=== PATIENT | male | born 1990 | race Caucasian/White ===

== ENCOUNTER 2016-04-17 10:58 | Emergency (ER) | payer MEDICAID ==
--- NOTE | ~2016-04-17 | ER ---
PATIENT'S NAME: DENTON TONG [facility] AGE: 25 Y [address] ROOM: [place] [address] LOCATION: [facility] ADMIT DATE: 04/17/2016 ER/Outpatient Report DISCHARGE DATE: 04/17/2016 FAMILY PHYSICIAN: Ramón Sandy MD ATTENDING PHYSICIAN: Miquel Fields CHIEF COMPLAINT: Fever and diarrhea and abdominal discomfort. HISTORY OF PRESENT ILLNESS: The patient states that for the last few days he has not been feeling very well. It has been progressive over the last several weeks, but it has been particularly rough the last few days. He states that his usual home medications are not controlling his symptoms adequately. The pain is most prominent in the upper mid abdomen. He has a history of cholecystectomy. He did see the provider recently on and did not have any report of any significantly abnormal labs. His highest temperature was 99.1 last night. He has had multiple episodes of loose stools recently. No other concerning presentation. He does have some sort of an immunologic deficiency. PAST MEDICAL HISTORY: As best we could figure are documented on the record and reviewed by me. SOCIAL HISTORY: As best we could figure are documented on the record and reviewed by me. MEDICATIONS: As best we could figure are documented on the record and reviewed by me. ALLERGIES: BEST WE COULD FIGURE ARE DOCUMENTED ON THE RECORD AND REVIEWED BY ME. REVIEW OF SYSTEMS: All systems reviewed and negative except as noted in the HPI. PHYSICAL EXAMINATION: VITAL SIGNS: Blood pressure is 131/74, pulse is 89, respiratory rate is 20, temperature 98.6, and SpO2 is 98% on room air. Pain is rated at 7/10, acceptable is 5/10. GENERAL: Age-appropriate male, in no obvious pain or distress, resting comfortably on exam table. HEENT: Normocephalic, atraumatic. Eyes are PERRL. Oropharynx is clear. NECK: Supple. Trachea is midline. CHEST/HEART: Regular rate and rhythm. No murmurs. LUNGS: Clear to auscultation bilaterally. No rhonchi, wheezes, or rales. PATIENT'S NAME: DENTON TONG [facility] AGE: 25 Y [address] ROOM: [place] [address] LOCATION: [facility] ADMIT DATE: 04/17/2016 ER/Outpatient Report DISCHARGE DATE: 04/17/2016 FAMILY PHYSICIAN: Ramón Sandy MD ATTENDING PHYSICIAN: Miquel Fielsd ABDOMEN: Tender in the epigastrium with significant flinching on initial exam. No rebound appreciated. Slightly worse exam on re-evaluation. Bowel sounds are present. No resonance to percussion. BACK: Nontender. EXTREMITIES: Warm and well perfused with no deformities, erythema, or edema. SKIN: Warm, dry, and intact. LABORATORY DATA AND X-RAYS: A CT scan of the abdomen was obtained with no abnormalities per Radiology. 3- way chest did not reveal any abnormalities per my read. Labs: Procalcitonin is below threshold. Sodium 139, potassium 4.5, chloride 105, CO2 is 23, BUN is 13, creatinine 1.1, and GFR is greater than 60. LFTs are unremarkable. Amylase and lipase 43 and 111 respectively. GGT is 171. CRP 0.3. Free T4 is 1.0, TSH is 1.14. WBC is 9.6, hemoglobin 14.1, and platelets of 320. INR is 1.0. Serum lactate is 2.4. IMPRESSION: 1. Abdominal pain. 2. Lactic acidemia with no evidence of hypoperfusion. 3. Elevation of GGT without evidence of hepatitis, status post cholecystectomy. EMERGENCY DEPARTMENT COURSE: The patient was seen and evaluated as above. No surgical abdomen at this time based on time course and presentation. The patient remained hemodynamically stable. His symptoms were attempted to be controlled with fluids in addition to morphine and Zofran. This did not help much. He was ultimately given some Dilaudid with Benadryl to prevent reaction and he did well with that and that in fact got him to an acceptable pain level. Based on his current presentation and time course, I do not think he has surgical cause at this time and he is not septic. I will recommend he follow up with his primary care providers in the next few days as needed. Return immediately to the ER if worsening. I gave him a short prescription for Dilaudid to take with Benadryl as needed if worse. All questions were answered. The patient was ultimately discharged in stable condition after acceptable pain control was achieved. MD GREER CARVER/levl PATIENT'S NAME: DENTON TONG [facility] AGE: 25 Y [address] ROOM: [place] [address] LOCATION: [facility] ADMIT DATE: 04/17/2016 ER/Outpatient Report DISCHARGE DATE: 04/17/2016 FAMILY PHYSICIAN: Ramón Sandy MD ATTENDING PHYSICIAN: Miquel Fields /[id number] d: 04/18/16 0006 t: 04/18/16 1055, OUTPATIENT REPORT
[~2016-04-17 10:58] MED LIST: ACETAMINOPHEN PO; ACIDOPHILUS1 EAC2 PO; ADVIL200 MG PO; ALEVE220 MG PO; ASPIRIN PO; ATARAX50 MG PO; ATIVAN 0.5MG0.5 MG PO; AUGMENTIN875 MG PO; BENTYL20 MG PO; BIOTIN PLUS-CA1 EACH PO; CALAN SR240 MG PO; CATAPRES0.2 MG PO; CENTRUM MULTIG80 MCG PO; DIPHENHYDRAMINE PO; DOXYCYCLINE100 MG PO; EFFEXOR XR150 MG PO; EFFEXOR XR75 MG PO; EXCEDRIN EXTRA1 EACH PO; EXCEDRIN PM PO; FLAGYL500 MG PO; FLEXERIL10 MG PO; GAVISCON 80-141 EACH PO; HYDROXYZINE HCL10 MG PO; IMITREX20 MG NOSE; IMITREX50 MG PO; INDOCIN50 MG PO; KLONOPIN0.5 MG PO; LACTINEX (FLORA1 TAB PO; LOMOTIL1 TAB PO; LOPRESSOR50 MG PO; LYRICA 150MG C150 MG PO; MAXALT MLT10 MG SL; MELATONIN5 M2 PO; MINOCIN100 M2 PO; MOBIC15 MG PO; NAPROSYN500 MG PO; NEURONTIN600 MG PO; NUCYNTA ER150 MG PO; OLANZAPINE15 MG PO; OLANZAPINE20 MG PO; PAXIL20 MG PO; PAXIL40 M1 PO; PHENERGAN12.5 MG R; PHENERGAN25 M1 PO; PHENERGAN25 MG PO; PRILOSEC20 MG PO; PROBIOTIC1 EAC1 PO; PROTONIX40 MG PO; RESTORIL15 MG PO; RIZATRIPTAN10 M1 PO; TART CHERRY CA1 EACH PO; TOPAMAX50 MG PO; TUMS REGULAR ST1 TAB PO; TYLENOL325 MG PO; ULTRAM50 MG PO; VANCOCIN HCL125 MG PO; VANCOMYCIN HCL1 GM PO; VIT D3 PO; VITAMIN D1000 UNIT PO; ZANTAC (NON-FO150 MG PO; ZOFRAN8 M1 PO
[2016-04-17 12:43] LABS: BASOPHIL # 0.1 K/uL (0.0-0.2); BASOPHIL % 0.7 %; EOSINOPHIL # 0.1 K/uL (0.0-0.5); EOSINOPHIL % 1.3 %; HEMATOCRIT 41.8 % (37.0-53.0); HEMOGLOBIN 14.1 g/dL (12.0-17.0); IMMATURE GRANULOCYTE # 0.1 K/uL (0.0-0.3); IMMATURE GRANULOCYTE % 0.8 %; LYMPHOCYTE # 0.7 K/uL (0.8-4.0); LYMPHOCYTE % 7.7 %; MCH 28.4 pg (27.0-34.0); MCHC 33.7 gm/dL (32.0-36.5); MCV 84.1 fl (83.0-98.0); MONOCYTE # 0.3 K/uL (0.0-1.0); MONOCYTE % 3.1 %; NEUTROPHIL # (ANC) 8.3 K/uL (1.4-9.0); NEUTROPHIL % 86.4 %; NRBC % 0 /100WBC (0-0.00); PLATELET COUNT 320 K/uL (150-450); RBC 4.97 M/uL (4.00-6.00); RDW-CV 12.6 % (11.9-14.6); WBC 9.6 K/uL (4.0-11.0)
[2016-04-17 12:48] LABS: PTT 23 SECONDS (25-32)
[2016-04-17 13:02] LABS: ALBUMIN 3.8 gm/dL (3.5-5.0); ALK PHOS 99 IU/L (33-138); ALT 54 IU/L (12-78); ANION GAP 15.5 (10.0-19.0); AST 22 IU/L (10-40); BLOOD UREA NITROGEN 13 mg/dL (6-24); CALCIUM 9.6 mg/dL (8.5-10.5); CHLORIDE 105 mMol/L (96-110); CO2 23 mMol/L (22-32); CREATININE 1.1 mg/dL (0.6-1.3); ESTIMATED GFR (MDRD EQUATION) > 60; POTASSIUM 4.5 mMol/L (3.7-5.1); SODIUM 139 mMol/L (135-145); TOTAL PROTEIN 7.6 g/dL (6.0-8.4)
[2016-04-17 13:03] LABS: TOTAL BILIRUBIN 0.3 mg/dL (0.0-1.5)
== END 2016-04-17 16:07 | disposition disaster alternative care site (69) ==
LOC: GMED 10:58
PROVIDERS: Emergency Medicine
DX: E87.2 Acidosis (principal); R10.13 Epigastric pain; R74.8 Abnormal levels of other serum enzymes
CPT/HCPCS: J1170; J1200; J2270; J2405; J7030

== ENCOUNTER 2016-07-14 21:59 | Emergency (ER) | payer MEDICAID ==
--- NOTE | ~2016-07-14 | ER ---
PATIENT'S NAME: DENTON TONG [facility] AGE: 25 Y [address] ROOM: [place] [address] LOCATION: ED ADMIT DATE: 07/14/2016 ER/Outpatient Report DISCHARGE DATE: 07/14/2016 FAMILY PHYSICIAN: Ramón Sandy MD ATTENDING PHYSICIAN: Heath Rosales Time of Arrival: 2207 hours. Time of Evaluation: 2215 hours. CHIEF COMPLAINT: Headache. HISTORY OF PRESENT ILLNESS: The patient states he has a headache that began about 11 o'clock this morning. States it is the worst headache he has ever had. It is a burning type pain in one specific spot on the top of his head. He states it is similar to the pain that he had when he had a brain bleed several years ago. States he has had photophobia all day. He is dizzy. He is vomited x1. ALLERGIES: ON HIS CHART AND REVIEWED BY ME. MEDS: On his chart and reviewed by me. PAST MEDICAL HISTORY: Chronic abdominal pain, anxiety, depression, immunodeficiency syndrome, migraine headaches. PAST SURGICAL HISTORY: Appendectomy and cholecystectomy. SOCIAL HISTORY: Denies use of tobacco, drugs, or alcohol. REVIEW OF SYSTEMS: All negative other than those mentioned in the HPI. PHYSICAL EXAMINATION: VITAL SIGNS: He weighs 80.4 kg, blood pressure is 131/67, pulse of 96, respirations 18, temperature of 97.6, O2 saturations 100% on room air. GENERAL: He is awake, alert, and oriented x4. SKIN: [place], warm, and dry. RESPIRATIONS: Even and nonlabored. Oropharynx is clear. NECK: Supple. No lymphadenopathy. PATIENT'S NAME: DENTON TONG [facility] AGE: 25 Y [address] ROOM: [place] [address] LOCATION: [facility] ADMIT DATE: 07/14/2016 ER/Outpatient Report DISCHARGE DATE: 07/14/2016 FAMILY PHYSICIAN: Ramón Sandy MD ATTENDING PHYSICIAN: Heath Rosales LUNGS: Lung sounds are clear throughout. HEART: Regular rate and rhythm. The patient walked in with a steady even gait. Moves all extremities strongly and equally. LABORATORY DATA AND X-RAYS: CT of the head was completed. No acute abnormalities are seen per the radiologist. The patient was given Toradol 60 mg IM and Phenergan 50 mg IM. IMPRESSION: Headache. PLAN: Home, rest, fluids. Continue his current medications. Follow up with his primary provider in the next 2 to 3 days or return to the ER as needed. SID BINGHAM APRN FOR MD JAY KING/mckinley /[id number] d: 07/15/16 0341 t: 07/19/16 1249, OUTPATIENT REPORT
[2016-07-15] MEDS ORDERED: DILAUDID 2MG(HYD2 MG PO (22:12)
[2016-07-15] MEDS ORDERED: VITAMIN D35000 UNI1 PO (22:13)
[2016-07-15] MEDS ORDERED: PROTONIX20 MG PO (22:14)
[2016-07-15] MEDS ORDERED: LOMOTIL1 TAB PO (22:15)
[2016-07-15] MEDS ORDERED: [UNRECOGNIZED DRUG - OTHER] SUB-Q (22:16)
[2016-07-15] MEDS ORDERED: MOTRIN800 MG PO (22:17)
[2016-07-15] MEDS ORDERED: DELTASONE20 MG PO (22:19)
[2016-07-15] MEDS ORDERED: DELTASONE20 M1 PO (22:20)
[2016-07-15] MEDS ORDERED: MAG-OX-400(241400 MG PO (22:23)
[2016-07-15] MEDS ORDERED: ATARAX10 MG PO (22:23)
[2016-07-15] MEDS ORDERED: MUSHROOM SUPPLEMENT PO (22:24)
[2016-07-15] MEDS ORDERED: RESTORE PO (22:26)
[2016-07-15] MEDS ORDERED: BENADRYL25 MG PO (22:29)
== END 2016-07-14 23:03 | disposition disaster alternative care site (69) ==
LOC: GMED 21:59
DX: R51 Headache (principal); F41.9 Anxiety disorder, unspecified; F32.9 Major depressive disorder, single episode, unspecified; D84.9 Immunodeficiency, unspecified; Z90.49 Acquired absence of other specified parts of digestive tract
CPT/HCPCS: J1885; J2550

== ENCOUNTER 2016-07-15 19:23 | Observation (INO) | payer MEDICAID ==
[~2016-07-15] VITALS: Ht 182.9 cm; Wt 80.2 kg
--- NOTE | ~2016-07-15 | DS ---
PATIENT'S NAME: DENTON TONG [facility] AGE: 25 Y [address] ROOM: [address] [place], [place] [address] [place] [facility] DATE: 07/15/2016 Discharge Summary DISCHARGE DATE: 07/16/2016 FAMILY PHYSICIAN: Ramón Sandy MD ATTENDING PHYSICIAN: Jered Baig V Principal Diagnosis: Migraine Headache secondary diagnosis. CVID narcotics addiction HOSPITAL COURSE: 1. 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 Multiple psychiatric illnesses including depression, anxiety, and chronically elevated liver enzymes presented to the emergency department with left side pulsating headache. This had been his second ER visit in the past [address] scan of the head was done and inpatient admission was requested. He was given Dilaudid and Zofran after which he felt better. An MRI of the head was done, which was unremarkable. He was admitted inpatient and given a dose of sumatriptan, which did improve his headache. His narcotics were held and he was told that he will not be given any further narcotic medications in this hospitalization. 2. The patient does have chronically elevated liver enzymes. On 07/15/2016, his alkaline phosphatase was 188, ALT 162, and AST 93. I dug up the previous history and this had been attributed to Effexor and olanzapine and home doses were reduced in consultation with Psychiatry and the previous admissions. I did reduce his dose of Effexor 225 mg p.o. once daily rather than 375 mg p.o. daily. I would still recommend Gastroenterology followup in 4 weeks with liver enzymes. DIET: Regular diet. ACTIVITIES: As tolerated. MEDICATION CHANGES: Effexor was changed from 375 mg to 225 mg p.o. and his Dilaudid was discontinued on discharge. MD JAYLON BURCIAGA/mckinley /[id number] d: 07/17/16 0307 t: 07/18/16 1525, DISCHARGE SUMMARY
--- NOTE | ~2016-07-15 | HP ---
PATIENT'S NAME: DENTON TONG [facility] AGE: 25 Y [address] ROOM: [address] [place], [place] [address] LOCATION: [facility] ADMIT DATE: 07/15/2016 History & Physical DISCHARGE DATE: FAMILY PHYSICIAN: Ramón Sandy MD ATTENDING PHYSICIAN: KENYETTA SOMMERS V DATE OF SERVICE: CHIEF COMPLAINT: Headache. HISTORY OF PRESENT ILLNESS: The patient is a 25-year-old male with complicated past medical history. He has a past medical history of common variable immunodeficiency with Gammagard dependency. He has a longstanding history of chronic abdominal pain with opioid dependency, currently on 2 mg either 2 or 3 times per day. This is managed by a pain specialist at [facility]. He has a history of depression, anxiety, and other psychiatric problems on very high doses of Effexor and Zyprexa. He also has a history of documented opioid-seeking behavior. He has a history of chronic abdominal pain and chronic C diff. The patient presented to the ER today with complaints of left-sided pulsating headache. This has been going on for about 3 days. He was seen in the ER yesterday and felt better with Dilaudid and Zofran and was sent home. Today, he returns again with the same symptoms. He reports that he does have a past medical history of migraines for which he is supposed to take Imitrex, but Imitrex has not been helping him. He reports that this pain is considerably different from his migraine pain. He endorses blurry vision, nausea, vomiting, fevers, chills, worsening abdominal pain, worsening diarrhea with "pussy stools." In the ER, the patient had quite an unremarkable workup. He felt considerably better with 1 mg of Dilaudid and an admission was requested. At this point, the patient just wants some more Dilaudid. REVIEW OF SYSTEMS: Positive as per all the symptoms listed in the HPI. A complete review of systems has been conducted and is negative aside from those pertinent positives. PAST MEDICAL HISTORY: In addition to the problems listed in the HPI, the patient does have a history of subdural hematoma back in 2011. He also was recently hospitalized here and transferred to [facility] with septic shock of unknown underlying PATIENT'S NAME: DENTON TONG [facility] AGE: 25 Y [address] ROOM: [place] [address] LOCATION: [facility] ADMIT DATE: 07/15/2016 History & Physical DISCHARGE DATE: FAMILY PHYSICIAN: Ramón Sandy MD ATTENDING PHYSICIAN: KENYETTA SOMMERS V pathogen. Fatty liver with elevated LFTs and cholecystectomy. CURRENT MEDICATIONS: 1. Cholecalciferol. 2. Benadryl. 3. Oral Lomotil. 4. Dilaudid 2 mg every 12 hours. 5. Atarax 50 three times a day. 6. Ibuprofen as needed. 7. Lorazepam 0.5 b.i.d. 8. Magnesium oxide. 9. Melatonin. 10. Metoprolol 50 mg p.o. b.i.d. 11. Multivitamins. 12. Olanzapine 20 at bedtime. 13. Zofran 8 mg twice a day. 14. Pantoprazole 20 mg daily. 15. Prednisone before Gammagard. 16. Sumatriptan nasal spray. 17. Restoril 50 mg at bedtime. 18. Gammagard weekly. 19. Venlafaxine total of 375 mg. SOCIAL HISTORY: The patient denies any toxic habits. FAMILY HISTORY: Reviewed and noncontributory due to known underlying etiology for the patient's presentation. PHYSICAL EXAMINATION: VITAL SIGNS: Blood pressure of 154/99, heart rate of 119, saturating 97% on room air, respirations are 16, and temperature is 98.2. GENERAL: Appears as a young male, in no significant distress, certainly not consistent with worse headache of his life. NEUROLOGIC: Nonfocal. HEENT: Shows pupils are equal and reactive to light. LYMPHATIC: Shows no cervical lymphadenopathy. ENDOCRINE: Shows no thyromegaly. There is no nuchal rigidity. Kernig and Brudzinski signs are negative. LUNGS: Clear to auscultation. HEART: Heart rate is tachycardic and regular. GI: Abdomen is soft and nontender with normoactive bowel sounds. The patient does endorse chronic left upper quadrant tenderness. : No costovertebral angle tenderness. PATIENT'S NAME: DENTON TONG [facility] AGE: 25 Y [address] ROOM: [place] [id number] LOCATION: [facility] ADMIT DATE: 07/15/2016 History & Physical DISCHARGE DATE: FAMILY PHYSICIAN: Ramón Sandy MD ATTENDING PHYSICIAN: KENYETTA SOMMERS V VASCULAR: 2+ pedal pulses. MUSCULOSKELETAL: Unremarkable. LABORATORY DATA: Studies performed in the ER are remarkable for alkaline phosphatase of 188, AST 93, ALT 163. An unremarkable CBC with a normal differential. ASSESSMENT AND PLAN: This is a 25-year-old male with poorly controlled headaches of presumed migraines. He will be admitted for observation. We will provide him with symptom control with one more dose of IV Dilaudid. I explained to the patient that I do not feel comfortable providing him with continuous IV dosing of Dilaudid given his already strongly establish dependency. I also explained to him that opioids, especially potent ones like Dilaudid actually have a tendency to exacerbate Clostridium difficile, which is probably present in his case. 1. We will get an MRI of his brain to rule out any additional etiology for his headaches, as the patient does report a different quality and intensity of this pain compared with his normal migraines. 2. Reported diarrhea. We will check him for Clostridium difficile. 3. Opioid dependency, noted as above. 4. Depression and anxiety. We will continue him on his current psychiatric regimen. 5. Additional management will depend on clinical course. Time dedicated to this patient encounter is 35 minutes. KENYETTA SOMMERS MD AVK/modl /[id number] D: [id number] T: [id number] HISTORY & PHYSICAL
--- NOTE | ~2016-07-15 | ER ---
PATIENT'S NAME: DENTON TONG [facility] AGE: 25 Y [address] ROOM: [place] [id number] [place] [facility] [place]MIT DATE: 07/15/2016 ER/Outpatient Report DISCHARGE DATE: FAMILY PHYSICIAN: Ramón Sandy MD ATTENDING PHYSICIAN: KENYETTA SOMMERS V TIME SEEN: 1934. CHIEF COMPLAINT: Severe migraine. HISTORY OF PRESENT ILLNESS: The patient is a 25-year-old male, presents with his dad with severe migraine, started about 18 hours ago. The patient was seen last night in the emergency room, was given pain medication and advised to follow up with Dr. Sandy. The patient was then seen by Dr. Sandy at noon today, was given Phenergan 75 mg IM, and advised if he did not improve to return to the emergency room for admission. The headache is described as similar to previous ones which include photophobia, some blurred vision, nausea, and vomiting. Headache mostly is on the left side. ALLERGIES/MEDICATIONS: See copied list, which is quite extensive as well as his home medications. MEDICAL HISTORY: Chronic abdominal pain, migraines, immune deficiency syndrome, chronic C. diff, depression, anxiety. SURGERIES: Include appendectomy and cholecystectomy. SOCIAL HISTORY: Nonsmoker. Does not use drugs or alcohol. REVIEW OF SYSTEMS: GENERAL: Denies fever or chills. HEAD/EENT: Includes severe headache involving mostly the left side. Denies any nasal discharge or sore throat. RESPIRATORY: No shortness of breath or cough. CARDIOVASCULAR: No chest pain. GASTROINTESTINAL: Includes nausea, vomiting, which is not unusual with his migraines. NEUROLOGIC: No numbness or tingling to his extremities. PHYSICAL EXAMINATION: VITAL SIGNS: He had a blood pressure of 114/71, his temperature is 98.9, his PATIENT'S NAME: DENTON TONG [facility] AGE: 25 Y [address] ROOM: [address] [address] [place] [facility] [place]MIT DATE: 07/15/2016 ER/Outpatient Report DISCHARGE DATE: FAMILY PHYSICIAN: Ramón Sandy MD ATTENDING PHYSICIAN: KENYETTA SOMMERS V respiratory rate 20, his pulse has increased to 129, his O2 saturation is 96%. GENERAL APPEARANCE: He appeared somewhat soft and quiet, but was able to carry on a conversation. He was wearing sunglasses because of the photophobia. HEENT: Pupils were grossly equal, reactive. His oral membranes were moist. LUNGS: Clear. NEURO: Gait appeared somewhat slow. No other focal neurological signs present. ASSESSMENT: 1. Intractable migraine. 2. Chronic immune deficiency syndrome. 3. Chronic anxiety/depression. 4. Chronic opiate use for pain control. 5. Has a history of chronic Clostridium difficile. 6. Status post appendectomy and cholecystectomy. PLAN: CBC was drawn here in the emergency room. His white count was 7000. IV was established. He was given 1 mg of Dilaudid and 4 of Zofran IV. The patient will be admitted by Dr. Sommers, the hospitalist. TRAVIS BOX FOR MD MANUELITO KING/mckinley /[id number] d: 07/16/16 0121 t: 07/21/16 1821, OUTPATIENT REPORT
[2016-07-15 20:14] LABS: BASOPHIL # 0.1 K/uL (0.0-0.2); BASOPHIL % 0.7 %; EOSINOPHIL # 0.1 K/uL (0.0-0.5); EOSINOPHIL % 1.1 %; HEMATOCRIT 44.9 % (37.0-53.0); HEMOGLOBIN 15.1 g/dL (12.0-17.0); IMMATURE GRANULOCYTE % 0.3 %; LYMPHOCYTE % 13.7 %; MCHC 33.6 gm/dL (32.0-36.5); MCV 83.3 fl (83.0-98.0); MONOCYTE # 0.5 K/uL (0.0-1.0); MONOCYTE % 6.6 %; MPV 9.3 fl (9.4-12.4); NEUTROPHIL # (ANC) 5.4 K/uL (1.4-9.0); NEUTROPHIL % 77.6 %; NRBC % 0 /100WBC (0-0.00); PLATELET COUNT 282 K/uL (150-450); RBC 5.39 M/uL (4.00-6.00); RDW-CV 12.9 % (11.9-14.6)
[2016-07-15 20:33] LABS: ALBUMIN 3.7 gm/dL (3.5-5.0); ALK PHOS 188 IU/L (33-138); ALT 162 IU/L (12-78); ANION GAP 10.7 (10.0-19.0); AST 93 IU/L (10-40); BLOOD UREA NITROGEN 7 mg/dL (6-24); CHLORIDE 107 mMol/L (96-110); CO2 26 mMol/L (22-32); CREATININE 1.2 mg/dL (0.6-1.3); ESTIMATED GFR (MDRD EQUATION) > 60; POTASSIUM 3.7 mMol/L (3.7-5.1); SODIUM 140 mMol/L (135-145); TOTAL PROTEIN 7.7 g/dL (6.0-8.4)
[2016-07-15 20:37] LABS: TOTAL BILIRUBIN 0.4 mg/dL (0.0-1.5)
[2016-07-15] MEDS ORDERED: DILAUDID 2MG(HYD2 MG PO (22:12)
[2016-07-15] MEDS ORDERED: VITAMIN D35000 UNI1 PO (22:13)
[2016-07-15] MEDS ORDERED: PROTONIX20 MG PO (22:14)
[2016-07-15] MEDS ORDERED: LOMOTIL1 TAB PO (22:15)
[2016-07-15] MEDS ORDERED: [UNRECOGNIZED DRUG - OTHER] SUB-Q (22:16)
[2016-07-15] MEDS ORDERED: MOTRIN800 MG PO (22:17)
[2016-07-15] MEDS ORDERED: DELTASONE20 MG PO (22:19)
[2016-07-15] MEDS ORDERED: DELTASONE20 M1 PO (22:20)
[2016-07-15] MEDS ORDERED: MAG-OX-400(241400 MG PO (22:23)
[2016-07-15] MEDS ORDERED: ATARAX10 MG PO (22:23)
[2016-07-15] MEDS ORDERED: MUSHROOM SUPPLEMENT PO (22:24)
[2016-07-15] MEDS ORDERED: RESTORE PO (22:26)
[2016-07-15] MEDS ORDERED: BENADRYL25 MG PO (22:29)
--- NOTE | 2016-07-16 05:18 | NUR ---
Admission Note: Pt arrived to floor via wheelchair at 2215. VS on admission are as follows: BP 154/99, HR: 119, 02 sat: 97%, R 16, T 98.2. Pt admitted for c/o migrane to L) parietal, ongoing for more than 48 hours. Was seen in the ER previous night. Was seen by Dr. Sandy in clinic today, was given medication and told if did not improve that he would be admitted. Rating pain 8/10. Pt also has complaints of blurred vision, sweating/chills, nausea/vomitting. Head CT negative. Has signficnat medical history. PMI chronic abdominal pain, occult blood off/on since 2010, migranes, immune deficiency syndrome, chronic cidff, depression, anxiety, hypertension. Several allergies, please see list. States that dilaudid is an allergy- causes itching though can tolerate if takes benadryl or atarax. migranes. He states he uses imitrex at home while usually resolves. Follows a special strict diet in [facility] to carbohydrates. Pt was placed in contact isolation for Cdiff.
--- NOTE | 2016-07-16 05:30 | NUR ---
Significant Event: Alert and oriented X3. Pupils round and reactive to light. Equal strength to bilateral upper and lower extremities. Tachcyardic and hypertensive on admission. BP now 108/71 with HR of 79. C/o of migrane pain to L) side of head and left lower abdominal pain (chronic). Gave 1 time does of Dilaudid 1mg IV. Pt was able to rest after dose. Ambulates with minimal assist. 20G IV to L) posterior forearm, saline locked. Zofran and atarax given after IV dose of dilaudid. No signs of nausea/vomitting or loose stools this shift. History of c-diff. Follow up: Need stool sample. MRI this am.
== END 2016-07-16 16:55 | disposition disaster alternative care site (69) ==
LOC: GMED 19:23 → GMSU 20:26
PROVIDERS: Emergency Medicine; ADMIT Internal Medicine
DX: G43.909 Migraine, unspecified, not intractable, without status migrainosus (principal); K76.0 Fatty (change of) liver, not elsewhere classified; F31.9 Bipolar disorder, unspecified; F41.9 Anxiety disorder, unspecified; R10.9 Unspecified abdominal pain; R79.89 Other specified abnormal findings of blood chemistry; D83.9 Common variable immunodeficiency, unspecified; F11.20 Opioid dependence, uncomplicated; Z79.899 Other long term (current) drug therapy; Z90.49 Acquired absence of other specified parts of digestive tract
CPT/HCPCS: A9270; G0378; J1170; J1200; J2405; J3030

== ENCOUNTER 2016-07-23 18:39 | Emergency (ER) | payer MEDICAID ==
--- NOTE | ~2016-07-23 | ER ---
PATIENT'S NAME: DENTON TONG [facility] AGE: 25 Y [address] ROOM: [place], [place] [address] LOCATION: ED ADMIT DATE: 07/23/2016 ER/Outpatient Report DISCHARGE DATE: 07/23/2016 FAMILY PHYSICIAN: Ramón Sandy MD ATTENDING PHYSICIAN: Heath Rosales Time of Arrival: 1841 hours. Time of Evaluation: 1905 hours. CHIEF COMPLAINT: Headache. HISTORY OF PRESENT ILLNESS: The patient states he has a headache on top of his head and has had for the last 7 days. He has had some photophobia and blurred vision. He has been nauseated and vomited x2. He was started on some new medications by Dr. Christopher for the headaches, sumatriptan and rizatriptan. He reports that he did take those today. The sumatriptan was this morning and the rizatriptan was at noon. He reports the headache continues, and it is not improving. He did take hydromorphone at 4 o'clock this afternoon. He states that he has been to Dr. Sandy's office this week also and has received Toradol several different times. ALLERGIES: DEMEROL AND METHADONE. CURRENT MEDICATIONS: On his chart and reviewed by me. PAST MEDICAL HISTORY: Chronic diarrhea, chronic abdominal pain, immunodeficiency syndrome, pancreatitis, recurrent C. diff, migraines. PAST SURGICAL HISTORY: Appendectomy, cholecystectomy, laparotomy, laparostomy in 2001, and fecal transplant in 2014. SOCIAL HISTORY: He denies the use of tobacco, drugs, or alcohol. He presents tonight with his father. REVIEW OF SYSTEMS: Negative other than those mentioned in the HPI. PHYSICAL EXAMINATION: PATIENT'S NAME: DENTON TONG [facility] AGE: 25 Y [address] ROOM: [place], [place] [address] LOCATION: [facility] ADMIT DATE: 07/23/2016 ER/Outpatient Report DISCHARGE DATE: 07/23/2016 FAMILY PHYSICIAN: Ramón Sandy MD ATTENDING PHYSICIAN: Heath Rosales VITAL SIGNS: He weighs 80.7 kg, blood pressure is 146/81, pulse of 106, respirations 16, temperature of 97.8, O2 saturation is 96% on room air. GENERAL: He is awake, alert, and oriented x4. SKIN: [place], warm, and dry. RESPIRATIONS: Even and nonlabored. Lung sounds are clear throughout. HEART: Regular rate and rhythm. He moves all extremities strongly and equally. NEURO: Cranial nerves 2 through 12 are grossly intact. EMERGENCY DEPARTMENT COURSE: Saline lock was initiated. Fluids of normal saline were started. He was given Benadryl 50 mg IV. We waited 15 minutes, and then he was given Toradol 30 mg and Compazine 10 mg. Fluids were continued to infuse. He rested comfortably on cart. IMPRESSION: Migraine headache. PLAN: Home, rest. Continue his medications as prescribed by Dr. Sandy and Dr. Christopher. Follow up with his primary provider on Monday. Return to the ER as needed. He verbalized understanding. SID BINGHAM APRN FOR MD JAY KING/mckinley /[id number] d: 07/23/16 2136 t: 07/25/16 1203, OUTPATIENT REPORT
[~2016-07-23 18:39] MED LIST changes: +ATARAX10 MG PO; +BENADRYL25 MG PO; +DELTASONE20 M1 PO; +DELTASONE20 MG PO; +DILAUDID 2MG(HYD2 MG PO; +MAG-OX-400(241400 MG PO; +MOTRIN800 MG PO; +MUSHROOM SUPPLEMENT PO; +PROTONIX20 MG PO; +RESTORE PO; +VITAMIN D35000 UNI1 PO; +[UNRECOGNIZED DRUG - OTHER] SUB-Q
== END 2016-07-23 20:33 | disposition disaster alternative care site (69) ==
LOC: GMED 18:39
DX: G43.909 Migraine, unspecified, not intractable, without status migrainosus (principal); Z21 Asymptomatic human immunodeficiency virus [HIV] infection status; Z79.899 Other long term (current) drug therapy; Z88.5 Allergy status to narcotic agent; Z90.49 Acquired absence of other specified parts of digestive tract
CPT/HCPCS: J0780; J1200; J1885; J7030

== ENCOUNTER 2016-07-24 16:39 | Emergency (ER) | payer MEDICAID ==
--- NOTE | ~2016-07-24 | ER ---
PATIENT'S NAME: DENTON TONG [facility] AGE: 25 Y [address] ROOM: [place] [address] LOCATION: [facility] ADMIT DATE: 07/24/2016 ER/Outpatient Report DISCHARGE DATE: 07/24/2016 FAMILY PHYSICIAN: Ramón Sandy MD ATTENDING PHYSICIAN: Miquel Wiseman SEEN AT: 1700 hours. CHIEF COMPLAINT: Severe intractable migraine. HISTORY OF PRESENT ILLNESS: The patient is a 25-year-old male, well known to the emergency room, who presents with his father with a migraine. The patient has a severe migraine for over a week. The patient was admitted last Monday for 24-hour observation. The patient then has been seen at [facility] during the week for Toradol injections. The patient states that the treatment last night did not help, which included Toradol, Benadryl, and Compazine. ALLERGIES: HE IS ALLERGIC TO DEMEROL AND METHADONE. CURRENT MEDICATIONS: See his copied list. MEDICAL HISTORY: Immune deficiency, chronic migraines, chronic abdominal pain, requiring daily opiates. SOCIAL HISTORY: Lives alone. Has good family support from his father. REVIEW OF SYSTEMS: Today; GENERAL: No fevers. HEAD/EENT: Includes a headache and also includes photophobia. RESPIRATORY: Negative. CARDIOVASCULAR: Negative. GASTROINTESTINAL: Has vomited. PHYSICAL EXAMINATION: VITAL SIGNS: Blood pressure 147/86, his temperature is 98, respiratory rate 16, pulse 92, and his O2 saturation is 96% on room air. PATIENT'S NAME: DENTON TONG [facility] AGE: 25 Y [address] ROOM: [place] [address] LOCATION: [facility] ADMIT DATE: 07/24/2016 ER/Outpatient Report DISCHARGE DATE: 07/24/2016 FAMILY PHYSICIAN: Ramón Sandy MD ATTENDING PHYSICIAN: Miquel Wiseman GENERAL APPEARANCE: He appears with sunglasses on, somewhat slow in answering questions. HEAD/EENT: Pupils appear equal and reactive. Had no nuchal rigidity. NEURO: No focal neurological signs. ASSESSMENT: Intractable migraine. PLAN: I did talk to Dr. Clark. He recommended just to try the Nubain and Phenergan and then have him follow up with Dr. Christopher on Monday. He also had mentioned that the CT and MRI of his brain was normal. TRAVIS BOX FOR MIQUEL WISEMAN MD SWJ/modl /[id number] d: 07/24/162054 t: 08/08/16 0650, OUTPATIENT REPORT
== END 2016-07-24 17:23 | disposition disaster alternative care site (69) ==
LOC: GMED 16:39
DX: G43.919 Migraine, unspecified, intractable, without status migrainosus (principal); Z88.5 Allergy status to narcotic agent; Z90.49 Acquired absence of other specified parts of digestive tract; Z79.899 Other long term (current) drug therapy
CPT/HCPCS: J2300; J2550

== ENCOUNTER 2016-07-30 16:44 | Emergency (ER) | payer MEDICAID ==
--- NOTE | ~2016-07-30 | ER ---
PATIENT'S NAME: DENTON TONG [facility] AGE: 25 Y [address] ROOM: [place] [address] LOCATION: ED ADMIT DATE: 07/30/2016 ER/Outpatient Report DISCHARGE DATE: 07/30/2016 FAMILY PHYSICIAN: Ramón Sandy MD ATTENDING PHYSICIAN: Antonio Olsen Time of Patient Arrival: 1644 hours. Time of Patient Evaluation: 1700 hours. CHIEF COMPLAINT: Abdominal pain. HISTORY OF PRESENT ILLNESS: This is a 25-year-old male who is well known to us here in the emergency room who states he is having an acute flare of his chronic abdominal pain. The patient states this started a few days ago and he has noticed some black stools with this. He did have a low-grade fever on Monday, but none today and he has had approximately 10 diarrheal bowel movements in the last 24 hours. He states he has also had nausea and vomiting x4 in the last 24 hours and some left-sided abdominal discomfort. The patient states his pain does not radiate anywhere. He states his appetite has been down and he has been dealing with a headache as well. He has been here several times this month trying to deal with his headache and states he has been overusing his pain medications that his pain specialist has written him, so he has ran out of those medications. He states that he has not had this hydromorphone since yesterday. The patient states he is not able to fill his pain medications again until Monday. ALLERGIES: DEMEROL, METHADONE, METHACYCLINE. MEDICATIONS: Please see medication list in nurse's notes. PAST MEDICAL HISTORY: 1. Autoimmune deficiency. 2. History of malnutrition. 3. Chronic C difficile. 4. History of narcotic abuse. 5. Anxiety. 6. Depression. PAST SURGERIES: Appendectomy, cholecystectomy, and abdominal exploratory laparoscopic surgeries. PATIENT'S NAME: DENTON TONG [facility] AGE: 25 Y [address] ROOM: [place] [address] LOCATION: ED ADMIT DATE: 07/30/2016 ER/Outpatient Report DISCHARGE DATE: 07/30/2016 FAMILY PHYSICIAN: Ramón Sandy MD ATTENDING PHYSICIAN: Antonio Olsen SOCIAL HISTORY: Denies smoking, drug, or alcohol use. REVIEW OF SYSTEMS: All systems are reviewed and were negative with the exception of those discussed in the HPI. PHYSICAL EXAMINATION: VITAL SIGNS: Height 6 feet stated, weight 79.4 kg taken, blood pressure is 113/72, pulse is 97, respirations 22, temperature 97.9 degrees tympanically, and saturations 98% on room air. Zaida Coma Score is 15. GENERAL: Alert, slightly anxious appearing male, in mild distress. HEENT: Head: Normocephalic. Eyes: Pupils are equal and reactive to light. He does display moist mucous membranes. LUNGS: Clear to auscultation bilaterally. HEART: Regular rate and rhythm. ABDOMEN: Soft. He has generalized tenderness in all 4 quadrants with palpation. He has no guarding, no rebound tenderness. He has good bowel sounds throughout. He does however state it is more tender in the left side of his abdomen than the right. NEURO: Cranial nerves 2 through 12 are grossly intact. Gait is steady without assistance. SKIN: Warm, dry, and intact. LABORATORY DATA: CBC: White count is 10.9, hemoglobin is 15.0, platelets 352. ANC is 9.8. CMS: Sodium 140, potassium is 4.1, glucose 137, BUN is 8, creatinine is 1.2, alkaline phosphatase is 110, AST is 25, ALT is 52. Estimated GFR is greater than 60. Amylase 41, lipase is 80. Urinalysis is negative for any infection. Stool series was done and was unremarkable. CT scan was done with IV contrast and shows no acute abnormality besides the fact that he has subcutaneous air in his abdomen. IMPRESSION: 1. Chronic abdominal pain. 2. Withdraws from narcotics. ASSESSMENT AND PLAN: I did start an IV here in the emergency room. I did give him some IV fluids along with 10 mg of Compazine and 50 mg of Benadryl. The patient did rest comfortably his entire stay and states his pain was starting to return, so I did give him 30 mg of Toradol IV. I did not feel comfortable refilling the patient's hydromorphone, but I will give him a few [place] to get him by until Monday to see his pain specialist. He needs to do clear fluids, bland diet, and follow up with his primary care physician on Monday. The patient PATIENT'S NAME: CATRACHITO TONGStephen Bains [facility] AGE: 25 Y [address] ROOM: [place] [address] LOCATION: [facility] ADMIT DATE: 07/30/2016 ER/Outpatient Report DISCHARGE DATE: 07/30/2016 FAMILY PHYSICIAN: Ramón Sandy MD ATTENDING PHYSICIAN: Antonio Olsen understands and agrees with care. TIM RAMIRES PA-C FOR DO AARON GIBBS/mckinley /[id number] d: 07/31/16 0204 t: 08/10/16 0651, OUTPATIENT REPORT
[2016-07-30 17:40] LABS: BASOPHIL % 0.2 %; HEMATOCRIT 43.2 % (37.0-53.0); IMMATURE GRANULOCYTE # 0.1 K/uL (0.0-0.3); LYMPHOCYTE # 0.7 K/uL (0.8-4.0); LYMPHOCYTE % 6.6 %; MCHC 34.7 gm/dL (32.0-36.5); MCV 83.4 fl (83.0-98.0); MONOCYTE # 0.3 K/uL (0.0-1.0); MONOCYTE % 2.4 %; MPV 9.4 fl (9.4-12.4); NEUTROPHIL # (ANC) 9.8 K/uL (1.4-9.0); NEUTROPHIL % 89.8 %; NRBC % 0 /100WBC (0-0.00); RBC 5.18 M/uL (4.00-6.00); RDW-CV 12.8 % (11.9-14.6); WBC 10.9 K/uL (4.0-11.0)
[2016-07-30 17:41] LABS: PLATELET COUNT 352 K/uL (150-450)
[2016-07-30 17:50] LABS: BILIRUBIN URINE NEGATIVE (NEGATIVE); BLOOD URINE NEGATIVE /UL (NEGATIVE); COLOR URINE YELLOW (YELLOW); GLUCOSE URINE 50 mg/dL (NEGATIVE); KETONE URINE NEGATIVE (NEGATIVE); LEUKOCYTES URINE NEGATIVE /UL (NEGATIVE); NITRITE URINE NEGATIVE (NEGATIVE); PROTEIN URINE NEGATIVE (NEGATIVE); SPEC GRAVITY URINE 1.005 (1.003-1.035); TURBIDITY URINE CLEAR (CLEAR); UROBILINOGEN URINE NORMAL (NORMAL)
[2016-07-30 17:58] LABS: ALBUMIN 3.5 gm/dL (3.5-5.0); ALK PHOS 110 IU/L (33-138); ALT 52 IU/L (12-78); BLOOD UREA NITROGEN 8 mg/dL (6-24); CALCIUM 9.1 mg/dL (8.5-10.5); CHLORIDE 107 mMol/L (96-110); CO2 23 mMol/L (22-32); CREATININE 1.2 mg/dL (0.6-1.3); ESTIMATED GFR (MDRD EQUATION) > 60; SODIUM 140 mMol/L (135-145); TOTAL PROTEIN 7.5 g/dL (6.0-8.4)
[2016-07-30 17:59] LABS: ANION GAP 14.1 (10.0-19.0); AST 25 IU/L (10-40); POTASSIUM 4.1 mMol/L (3.7-5.1); TOTAL BILIRUBIN 0.3 mg/dL (0.0-1.5)
== END 2016-07-30 20:19 | disposition disaster alternative care site (69) ==
LOC: GMED 16:44
PROVIDERS: Physician Assistant Medical
DX: R10.9 Unspecified abdominal pain (principal); G89.29 Other chronic pain; F41.9 Anxiety disorder, unspecified; F11.23 Opioid dependence with withdrawal; F32.9 Major depressive disorder, single episode, unspecified; Z90.49 Acquired absence of other specified parts of digestive tract; Z98.890 Other specified postprocedural states; Z86.39 Personal history of other endocrine, nutritional and metabolic disease; Z86.19 Personal history of other infectious and parasitic diseases
CPT/HCPCS: J0780; J1200; J1885; J7030; Q9967

== ENCOUNTER 2016-08-18 14:47 | Emergency (ER) | payer MEDICAID ==
--- NOTE | ~2016-08-18 | ER ---
PATIENT'S NAME: DENTON TONG [facility] AGE: 25 Y [address] ROOM: [place] [address] LOCATION: ED ADMIT DATE: 08/18/2016 ER/Outpatient Report DISCHARGE DATE: 08/18/2016 FAMILY PHYSICIAN: Ramón Sandy MD ATTENDING PHYSICIAN: Tomasa Bedolla Time of Arrival: 1447 hours. Time of Evaluation: 1511 hours. IDENTIFICATION: A 25-year-old male. CHIEF COMPLAINT: Abdominal pain. HISTORY OF PRESENT ILLNESS: The patient is a 25-year-old male. The patient is apparently well known to the emergency room here with chronic abdominal pain, has been previously worked up by GI with no acute findings. The patient states he has had abdominal pain since Monday, sharp, left-sided abdominal pain, associated with chills but no fever. He has had nausea and vomiting x2 in the last 24 hours. He has had diarrhea 8 in the last 24 hours. He said normally he has 5. No blood in his stools. No dark, tarry, or black stools. Last appointment with Dr. Kohler was 1 month ago. He has had previous upper and lower endoscopies without any acute findings. Dr. Kohler has apparently recommended that he be evaluated at [facility] in [place] but has not heard anything from them as to where that appointment is being scheduled. ALLERGIES: TO DILAUDID, CAUSES HIM TO ITCH; HE SAID THE IV VERSION; HE IS ON ORAL DILAUDID. METHADONE CAUSES HIM TO SWELL. MINOCYCLINE AND DEMEROL CAUSE A RASH. CURRENT MEDICATIONS: 1. Chlorhexidine rinse with 15 mL twice daily. 2. Cholestyramine 4 g in water as directed and drink twice daily. 3. Diphenoxylate and atropine 2 tablets at h.s. 4. Fluoxetine 10 mg q.a.m. 5. Hydromorphone tab 2 mg one q.8 hours. 6. Hydroxyzine 50 mg t.i.d., and then 2 to 3 tablets in the evening before infusion, 2-1/2 tablets 1 hour prior to infusion in the evening of infusion. 7. Ibuprofen 800 mg t.i.d. 8. Imitrex spray as needed. 9. Mupirocin ointment t.i.d. PATIENT'S NAME: DENTON TONG [facility] AGE: 25 Y [address] ROOM: [place] [address] LOCATION: ED ADMIT DATE: 08/18/2016 ER/Outpatient Report DISCHARGE DATE: 08/18/2016 FAMILY PHYSICIAN: Ramón Sandy MD ATTENDING PHYSICIAN: Tomasa Bedolla 10. Olanzapine 20 mg half tablet twice daily. 11. Ondansetron 8 mg b.i.d. and 4 mg q.8 hours as needed. 12. Pantoprazole 40 mg daily. 13. Prednisone 10 mg 2-1/2 tablets prior to infusion of IgG. 14. Rizatriptan 10 mg at onset of migraine. 15. Temazepam 15 mg at h.s. 16. Venlafaxine 75 mg q.a.m. MEDICAL PROBLEMS: History of subdural hematoma in 2011; fatty liver with elevated LFTs; common variable immunodeficiency with Gammagard dependency; long-standing history of chronic abdominal pain with opioid dependency, managed by pain specialist; depression; anxiety; documented opioid seeking behavior; chronic C. diff. REVIEW OF SYSTEMS: All systems reviewed and negative other than what is noted in the HPI. FAMILY HISTORY: No pertinent family history identified. PHYSICAL EXAMINATION: VITAL SIGNS: Height 6 feet 0 inches, weight 80.7 kg, blood pressure 123/84, pulse 97, respirations 18, temperature 98, sats 100% on room air. GENERAL: A 25-year-old male, in no acute distress. HEENT: Head: Normocephalic, atraumatic. Eyes: Pupils equal and reactive to light and accommodation. Extraocular movements intact. Nose: Mucosa pink. No lesions. Mouth: No lesions. Pharynx benign. NECK: Supple. No lymphadenopathy. LUNGS: Clear to auscultation. Breath sounds are equal. HEART: Regular rate and rhythm. No murmur, rub, or gallop. ABDOMEN: Bowel sounds present. Soft, nondistended, minimally tender to deep palpation in the left lower abdomen. No rebound or guarding. SKIN: [place], warm, and dry. No lesions or rashes noted. NEURO: No focal deficit. LABORATORY DATA AND X-RAYS: Chemistry panel remarkable for AST 75, ALT 109. He has chronic elevation of those enzymes. Amylase and lipase are normal. CBC is unremarkable. The patient had no vomiting or diarrhea while he was here in the emergency room. IMPRESSION: 1. Chronic abdominal pain. 2. Chronic diarrhea. 3. Opioid dependency. PATIENT'S NAME: DENTON TONG [facility] AGE: 25 Y [address] ROOM: [place] [address] LOCATION: [facility] ADMIT DATE: 08/18/2016 ER/Outpatient Report DISCHARGE DATE: 08/18/2016 FAMILY PHYSICIAN: Ramón Sandy MD ATTENDING PHYSICIAN: Tomasa Bedolla 4. Depression and anxiety. PLAN: Discharge to home. Clear liquids as tolerated. Advance diet as tolerated. Zofran p.r.n. nausea, which he has at home. Follow up with Dr. Kohler or Dr. Sandy in 1 day. Follow up sooner if any problems or concerns. TOMASA BEDOLLA MD CAR/modl /[id number] d: 08/18/16 2322 t: 08/19/16 1249, OUTPATIENT REPORT
[2016-08-18 15:39] LABS: BASOPHIL # 0.1 K/uL (0.0-0.2); BASOPHIL % 1.1 %; EOSINOPHIL # 0.1 K/uL (0.0-0.5); EOSINOPHIL % 1.3 %; HEMATOCRIT 45.6 % (37.0-53.0); HEMOGLOBIN 15.5 g/dL (12.0-17.0); IMMATURE GRANULOCYTE # 0.1 K/uL (0.0-0.3); IMMATURE GRANULOCYTE % 1.3 %; LYMPHOCYTE # 1.2 K/uL (0.8-4.0); LYMPHOCYTE % 21.5 %; MCH 28.8 pg (27.0-34.0); MCV 84.8 fl (83.0-98.0); MONOCYTE # 0.4 K/uL (0.0-1.0); MONOCYTE % 6.8 %; MPV 8.4 fl (9.4-12.4); NEUTROPHIL # (ANC) 3.7 K/uL (1.4-9.0); NRBC % 0 /100WBC (0-0.00); PLATELET COUNT 254 K/uL (150-450); RBC 5.38 M/uL (4.00-6.00); RDW-CV 12.8 % (11.9-14.6); WBC 5.5 K/uL (4.0-11.0)
[2016-08-18 15:59] LABS: ALBUMIN 3.6 gm/dL (3.5-5.0); ALK PHOS 151 IU/L (33-138); ALT 109 IU/L (12-78); ANION GAP 12.9 (10.0-19.0); AST 75 IU/L (10-40); BLOOD UREA NITROGEN 8 mg/dL (6-24); CALCIUM 9.3 mg/dL (8.5-10.5); CHLORIDE 105 mMol/L (96-110); CO2 25 mMol/L (22-32); CREATININE 0.9 mg/dL (0.6-1.3); ESTIMATED GFR (MDRD EQUATION) > 60; POTASSIUM 3.9 mMol/L (3.7-5.1); SODIUM 139 mMol/L (135-145); TOTAL PROTEIN 7.7 g/dL (6.0-8.4)
[2016-08-18 16:00] LABS: TOTAL BILIRUBIN 0.6 mg/dL (0.0-1.5)
== END 2016-08-18 16:45 | disposition disaster alternative care site (69) ==
LOC: GMED 14:47
PROVIDERS: Family Medicine
DX: G89.29 Other chronic pain (principal); R10.9 Unspecified abdominal pain; R19.7 Diarrhea, unspecified; F11.20 Opioid dependence, uncomplicated; F41.9 Anxiety disorder, unspecified; F32.9 Major depressive disorder, single episode, unspecified; D83.8 Other common variable immunodeficiencies; Z79.899 Other long term (current) drug therapy

== ENCOUNTER 2016-09-29 19:32 | Emergency (ER) | payer MEDICAID ==
--- NOTE | ~2016-09-29 | ER ---
PATIENT'S NAME: DENTON TONG [facility] AGE: 26 Y [address] ROOM: [place] [address] LOCATION: [facility] ADMIT DATE: 09/29/2016 ER/Outpatient Report DISCHARGE DATE: 09/29/2016 FAMILY PHYSICIAN: Ramón Sandy MD ATTENDING PHYSICIAN: Antonio Olsen Time of Arrival: 2102 hours Time of Evaluation: 2102 hours CHIEF COMPLAINT: Abdominal pain. HISTORY OF PRESENT ILLNESS: The patient is a 26-year-old male, who presents to the emergency department today with chief complaint of abdominal pain. He has had a long history of chronic abdominal pain. He was seen and evaluated at the clinic today and was found to have some mild elevation in his liver enzymes. He has had previous workup with GI with no acute findings. This is a diffuse abdominal pain. Denies any dark tarry stools, no blood in the stools. PAST MEDICAL HISTORY: Autoimmune deficiency, history of malnutrition, chronic C. diff, history of narcotic abuse, anxiety, depression. PAST SURGICAL HISTORY: Appendectomy, cholecystectomy, abdominal exploratory laparoscopic surgeries. SOCIAL HISTORY: The patient denies any alcohol or illicit drug use or tobacco use. ALLERGIES: ARE REPORTED DEMEROL, METHADONE, AND METHACYCLINE. MEDICATIONS: Please see list. PRIMARY CARE DOCTOR: Ramón Sandy MD. REVIEW OF SYSTEMS: All systems are reviewed by myself and are negative with the exception of those discussed in the HPI and past medical history. PHYSICAL EXAMINATION: VITAL SIGNS: Weight 82.6 kg, blood pressure 149/88, pulse 96, respiratory PATIENT'S NAME: DENTON TONG [facility] AGE: 26 Y [address] ROOM: [place] [address] LOCATION: [facility] ADMIT DATE: 09/29/2016 ER/Outpatient Report DISCHARGE DATE: 09/29/2016 FAMILY PHYSICIAN: Ramón Sandy MD ATTENDING PHYSICIAN: Antonio Olsen rate 16, temperature 98.9, oxygen saturation 98% on room air. GENERAL: The patient is a 26-year-old male, appears stated age, in no acute distress at this time. HEENT: Head normocephalic, atraumatic. Pupils are equal, round, and reactive to light. NECK: Supple. There is no nuchal rigidity. CARDIOVASCULAR: Regular rate and rhythm. No murmurs, rubs, or gallops. LUNGS: Clear to auscultation bilaterally. No wheezes, rales, or rhonchi. ABDOMEN: Soft. Mild diffuse tenderness to palpation. No rebound, rigidity, or guarding. Positive bowel sounds. MUSCULOSKELETAL: The patient moves all 4 extremities. SKIN: Warm and dry. There are no rashes or lesions noted. LABORATORY DATA AND X-RAYS: Labs and x-rays are obtained from outlying facility. CBC: White blood cell count 4.5, hemoglobin 13.5, hematocrit 40.3, platelet 258. CMP: Sodium 141, potassium 3.8, chloride 107, CO2 of 22, BUN 11, creatinine 0.95, glucose 110, AST is 227, ALT is 220, T. bili is normal at 0.7, amylase is 164, lipase is 974. CT scan of the abdomen and pelvis with IV contrast obtained as interpreted by Radiology. It does show mild fatty liver. There is no acute process. Pancreas appears normal. IMPRESSION: 1. Mild elevation in pancreatic enzymes. 2. Mild elevation in liver enzymes. 3. Acute nonsurgical generalized abdominal pain. 4. Initial visit. EMERGENCY DEPARTMENT COURSE: The patient was brought back to the examination room. Seen and evaluated by myself. IV was established. [facility] was obtained. I have discussed the results with the patient and his mother who was at the bedside. I have re-examined the patient's abdominal exam. He continues on nonsurgical abdominal exam at this time. He has not had any active vomiting here, he is tolerating p.o. I do feel he is safe for outpatient evaluation. The patient was given 1 mg of Dilaudid IV. He was given 10 mg of Compazine IV as well as 50 mg of Benadryl IV. I have asked the patient to follow up with Dr. Ramón Sandy in 1 to 2 days for re-evaluation of the patient's abdominal exam. I have discussed return to care instructions including worsening symptoms or other concerns to return to the emergency department as soon as possible. The patient is agreeable. The mother is agreeable. They are without further questions at this time. DISPOSITION: PATIENT'S NAME: DENTON TONG [facility] AGE: 26 Y [address] ROOM: [place], [place] [address] LOCATION: [facility] ADMIT DATE: 09/29/2016 ER/Outpatient Report DISCHARGE DATE: 09/29/2016 FAMILY PHYSICIAN: Ramón Sandy MD ATTENDING PHYSICIAN: Antonio Olsen The patient was discharged home in good condition. DO CHARLES GIBBS/mckinley /[id number] d: 09/30/16 011 t: 09/30/16 0206, OUTPATIENT REPORT
== END 2016-09-29 22:57 | disposition disaster alternative care site (69) ==
LOC: GMED 19:32
DX: R10.84 Generalized abdominal pain (principal); R74.8 Abnormal levels of other serum enzymes; D84.9 Immunodeficiency, unspecified; F41.9 Anxiety disorder, unspecified; F32.9 Major depressive disorder, single episode, unspecified; Z90.49 Acquired absence of other specified parts of digestive tract; Z98.890 Other specified postprocedural states; Z88.8 Allergy status to other drugs, medicaments and biological substances; Z88.5 Allergy status to narcotic agent; Z79.891 Long term (current) use of opiate analgesic; Z79.899 Other long term (current) drug therapy
CPT/HCPCS: J0780; J1170; J1200; J1885; J7030; Q9967